=== PATIENT | female | born 1975 | race Caucasian/White ===

== ENCOUNTER 2022-07-21 16:00 | Outpatient (CLI) | payer OTHER ==
[2022-07-21 20:52] LABS: BASOPHILS # (AUTO) 0.1 10^3/uL (0.0-0.1); BASOPHILS % (AUTO) 0.5 %; EOSINOPHILS # (AUTO) 0.2 10^3/uL (0.0-0.7); EOSINOPHILS % (AUTO) 1.8 %; HCT - HEMATOCRIT 34.1 % (37.0-47.0); HGB - HEMOGLOBIN 10.7 g/dL (12.0-16.0); LYMPHOCYTES # (AUTO) 2.5 10^3/uL (1.5-3.5); LYMPHOCYTES % (AUTO) 23.3 %; MEAN CORPUSCULAR HEMOGLOBIN 25.6 pg (27.0-31.0); MEAN CORPUSCULAR HGB CONC 31.4 g/dL (32.0-36.0); MEAN CORPUSCULAR VOLUME 81.6 fL (81.0-99.0); MEAN PLATELET VOLUME 8.7 fL (7.9-10.8); MONOCYTES # (AUTO) 0.7 10^3/uL (0.0-1.0); MONOCYTES % (AUTO) 6.8 %; NEUTROPHILS # (AUTO) 7.3 10^3/uL (1.5-6.6); NEUTROPHILS % (AUTO) 67.2 %; PLT - PLATELET COUNT 499 10^3/uL (130-450); RED BLOOD COUNT 4.18 10^6/uL (4.20-5.40); RED CELL DISTRIBUTION WIDTH 17.3 % (12.0-15.0); WHITE BLOOD COUNT 10.9 x10^3/uL (4.8-10.8)
[2022-07-21 21:05] LABS: CALCIUM 9.2 mg/dL (8.5-10.3); CREATININE 0.6 mg/dL (0.4-1.0); POTASSIUM 3.9 mmol/L (3.5-5.0)
== END 2022-07-21 16:15 | disposition home or self-care (01) ==
LOC: LAB.N 16:00
PROVIDERS: ATTEND Nurse Practitioner
DX: N92.0 Excessive and frequent menstruation with regular cycle (principal)
CPT/HCPCS: 36415; 80048; 85025

== ENCOUNTER 2022-09-24 13:58 | Outpatient (CLI) | payer OTHER ==
--- NOTE | 2022-10-06 10:13 | Mammography Report ---
BILATERAL DIGITAL SCREENING MAMMOGRAM 3D/2D: 09/24/2022 CLINICAL: Routine screening. No prior exams were available for comparison. Both breasts are heterogeneously dense, which may obscure small masses (category c / 51-75% glandular tissue). There is a focal asymmetry in the right breast at 9 o'clock middle depth. No other significant masses, calcifications, or other findings are seen in either breast. IMPRESSION: INCOMPLETE: NEEDS ADDITIONAL IMAGING EVALUATION The focal asymmetry in the right breast is indeterminate. Additional views with possible ultrasound are recommended. Based on the Tyrer Cuzick model (a risk assessment model) the patients lifetime risk is 11.6% and he r 10 year risk is 2.4%. According to the ACR, ACS, and NCCN guidelines, an annual breast MRI exam nadia ng with mammogram is recommended if the patients lifetime risk is 20% or greater. This exam was interpreted at Station ID: [id number]. NOTE: For mammograms, a report in lay terms will be sent to the patient. Approximately 15% of breast malignancies will not be visualized mammographically. In the management of a palpable breast mass, a negative mammogram must not discourage biopsy of a clinically suspicious lesion. Electronically Signed By: Poppy olivo/darrell:10/05/2022 14:45:43 ACR BI-RADS Category 0: Incomplete 3340F PARENCHYMAL PATTERN: (D) - The breast(s) demonstrate(s) heterogeneously dense fibroglandular parenchy ma. BI-RADS CATEGORY: (0) - 0 Mammo and [place] [id number] Immediate follow-up LATERALITY: (B)
== END 2022-09-24 13:59 | disposition home or self-care (01) ==
LOC: DI 13:58
PROVIDERS: ATTEND Obstetrics & Gynecology
DX: Z12.31 Encounter for screening mammogram for malignant neoplasm of breast (principal); R92.8 Other abnormal and inconclusive findings on diagnostic imaging of breast

== ENCOUNTER 2022-10-20 10:41 | Outpatient (CLI) | payer OTHER ==
--- NOTE | 2022-10-21 10:42 | Mammography Report ---
UNILATERAL RIGHT DIGITAL DIAGNOSTIC MAMMOGRAM 3D/2D WITH SPOT COMPRESSION: 10/20/2022 CLINICAL: Patient returns today to evaluate a focal asymmetry in the right breast. Comparison is made to exams dated: 09/24/2022 mammogram - Merged with [facility], 11/15/2019 mamm ogram, and 11/15/2019 ultrasound biopsy - [facility]. The right breast is heterogeneously dense, which may obscure small masses (category c / 51-75% glandu lar tissue). There is a focal asymmetry in the right breast at 9 o'clock middle depth. No other significant masses or calcifications are seen in the breast. IMPRESSION: INCOMPLETE: NEEDS ADDITIONAL IMAGING EVALUATION The focal asymmetry in the right breast is indeterminate. A targeted ultrasound is recommended and will immediately follow. Based on the Tyrer Cuzick model (a risk assessment model) the patients lifetime risk is 11.6% and he r 10 year risk is 2.4%. According to the ACR, ACS, and NCCN guidelines, an annual breast MRI exam nadia ng with mammogram is recommended if the patients lifetime risk is 20% or greater. This exam was interpreted at Station ID: [id number]. NOTE: For mammograms, a report in lay terms will be sent to the patient. Approximately 15% of breast malignancies will not be visualized mammographically. In the management of a palpable breast mass, a negative mammogram must not discourage biopsy of a clinically suspicious lesion. Electronically Signed By: Brice Ward M.D. slc/:10/20/2022 11:20:05 ACR BI-RADS Category 0: Incomplete 3340F PARENCHYMAL PATTERN: (D) - The breast(s) demonstrate(s) heterogeneously dense fibroglandular [place]. BI-RADS CATEGORY: (0) - 0 Ultrasound [id number] Immediate follow-up LATERALITY: (B)
--- NOTE | 2022-10-21 10:42 | Ultrasound Report ---
LIMITED ULTRASOUND OF RIGHT BREAST: 10/20/2022 CLINICAL: Patient returns today to evaluate a focal asymmetry in the right breast. Comparison is made to exams dated: 09/24/2022 mammogram - [facility], 11/15/2019 mamm ogram, 11/15/2019 ultrasound biopsy, 10/26/2019 ultrasound - [facility], and 10/20/2022 mammogram - [facility]. Color flow ultrasound of the right breast 9 o'clock region was performed. Jorgensen scale images of the r eal-time examination were reviewed. There is a 1.1 cm x 0.7 cm x 0.2 cm oval mass in the right breast at 9 o'clock middle depth 8 cm from the nipple. This oval mass is hypoechoic with a well-defined boundary and no posterior acoustic sha dowing or enhancement. This correlates with mammography findings. Color flow imaging demonstrates t hat there is no vascularity present. IMPRESSION: PROBABLY BENIGN The 1.1 cm oval mass in the right breast resembles a complicated cyst or a lymph node and is probably benign. A follow-up mammogram and an ultrasound in 6 months is recommended to demonstrate stability. Exam findings were conveyed to the patient. This exam was interpreted at Station ID: [id number]. Electronically Signed By: Brice Ward M.D. slc/:10/20/2022 11:47:17 Ultrasound BI-RADS: 3 Probably benign BI-RADS CATEGORY: (3) - 3 Mammo and [place] [id number] 6 month follow-up LATERALITY: (B)
== END 2022-10-20 10:42 | disposition home or self-care (01) ==
LOC: DI 10:41
PROVIDERS: ATTEND Obstetrics & Gynecology
DX: N63.15 Unspecified lump in the right breast, overlapping quadrants (principal)

== ENCOUNTER 2022-10-27 06:12 | Day surgery (SDC) | payer OTHER ==
[2022-10-27] MEDS ORDERED: LACTATED RINGERS 1,000 ML IV ONE ×2 (06:17→08:09)
[2022-10-27 06:36] LABS: HCG UR QUAL NEGATIVE
[2022-10-27] MEDS ORDERED: NALOXONE 0.4 MG/ML VIAL IVP PRN (07:08)
[2022-10-27] MEDS ORDERED: ATROPINE ABBOJECT 1 MG/10 ML SYRINGE IVP PRN (07:08)
[2022-10-27] MEDS ORDERED: HYDROmorphone 0.5 MG/0.5 ML SYRINGE IVP PRN (07:08)
[2022-10-27] MEDS ORDERED: ePHEDrine 50 MG/ML VIAL IVP PRN (07:08)
[2022-10-27] MEDS ORDERED: fentaNYL 100 MCG/2 ML VIAL IVP PRN (07:08)
[2022-10-27] MEDS ORDERED: SILVER NITRATE APPLICATOR TOP ONE (07:08)
[2022-10-27] MEDS ORDERED: ONDANSETRON 4 MG/2 ML VIAL IVP PRN (07:08)
--- NOTE | 2022-10-27 07:08 | ANESTHESIA ---
Pre-Anesthesia VS, & Labs - Diagnosis submucosal dibroid, heavy menstrual bleeding - Procedure hysteroscopy w d&c, myomectomy Vital Signs: Temp Pulse Resp BP Pulse Ox O2 Flow Rate 36.4 C L 73 16 129/74 100 10/27/22 06:24 10/27/22 06:24 10/27/22 06:24 10/27/22 06:24 10/27/22 06:24 Height: 5 ft 7 in Weight (kg): 94 kg Body Mass Index: 32.4 BMI Classification: Obese - NPO >8 hours - Is Patient ?: No - Lab Results Lab results reviewed: Yes Home Medications and Allergies Home Medications: Ambulatory Orders No Known Home Medications 10/21/22 No Known Home Medications 10/21/22 Allergies/Adverse Reactions: Allergies Allergy/AdvReac Type Severity Reaction Status Date / Time No Known Drug Allergies Allergy Verified 10/21/22 11:27 Anes History & Medical History - Anesthetic History Anesthesia Complications: reports: No previous complications Family history of Anesthesia Complications: Denies Family history of Malignant Hyperthermia: Denies - Medical History Cardiovascular: reports: None Pulmonary: reports: None Gastrointestinal: reports: None Urinary: reports: None Neuro: reports: None Musculoskeletal: reports: None Endocrine/Autoimmune: reports: None Blood Disorders: reports: None Skin: reports: None, Eczema Smoking Status: Never smoker - Surgical History Eyes Ears Nose Throat (EENT): reports: Myringotomy (tubes) Exam General: Alert, Oriented x3, Cooperative Dental: WNL Mouth Openin Fingerbreadth Neck Mobility: Normal Mallampati classification: II Thyromental Distance: 4-6 cm Respiratory: Lungs clear Cardiovascular: Regular rate Plan Anesthesia Type: General, MAC Consent for Procedure(s) Verified and Reviewed: Yes Code Status: Attempt Resuscitation ASA classification: 1-Healthy patient Is this case an emergency?: No
[2022-10-27] MEDS ORDERED: fentaNYL 100 MCG/2 ML VIAL ONE (07:26)
[2022-10-27] MEDS ORDERED: MIDAZOLAM 2 MG/2 ML VIAL ONE (07:26)
[2022-10-27] MEDS ORDERED: BUPIVACAINE 0.25% PF 30 ML VIAL ONE (07:33)
[2022-10-27] MEDS ORDERED: BUPIVACAINE 0.5%-EPI 1:200000 PF 30 ML VIAL ONE (07:33)
[2022-10-27] MEDS ORDERED: LIDOCAINE 1%-EPI 1:100000 20 ML MDV ONE (07:33)
[2022-10-27] MEDS ORDERED: LACTATED RINGERS 1,000 ML IV SCH (08:00)
[2022-10-27] MEDS ORDERED: ACETAMINOPHEN 500 MG TABLET PO PRN (08:28)
--- NOTE | 2022-10-27 08:32 | OPERATIVE REPORT ---
Operative Report - General Procedure Date: 10/27/22 Planned Procedure: Dilation, curettage, hysteroscopy, myomectomy Pre-Op Diagnosis: Menorrhagia, submucosal leiomyoma Procedure Performed: Dilation, curettage, hysteroscopy, myomectomy Post Op Diagnosis: Menorrhagia, submucosal leiomyoma - Procedure Note Primary Surgeon: Myra Cottrell DO Anesthesia Provider: Neno Callahan CRNA Pathology: Leiomyoma, endometrial curettings Estimated Blood Loss (mL): 20 Indications: Menorrhagia, submucosal leiomyoma Findings: Anterior leiomyoma vs polyp tissue [place] visualized Sounded 10cm Complications: None - Other Other Information/Narrative: Patient transferred to OR and adequate anesthesia obtained. Placed in dorsal lithotomy position. Prepped and draped in sterile fashion. Bladder emptied. Speculum placed. Anterior lip of cervix grasped with single tooth tenaculum. Sounded 10cm. Dilated to accomodate Myosure hysteroscope. Afrementioned findings noted. Myosure lite device used to resect fibroid/polyp tissue and EMC. Hysteroscope removed. Endometrial curettings obtained. Tenaculum removed. Hemostasis. NS fluid deficit 300cc. Tolerated procedures well. Counts correct x2. Transferred to PACU in stable condition.
[2022-10-27 08:33] VITALS: O2SAT 98
[2022-10-27 09:07] VITALS: BP 112/56
--- NOTE | 2022-10-27 11:49 | ANESTHESIA POST OP EVALUATION ---
Anesthesia Post Eval - Post Anesthesia Eval Vitals: Last Vital Signs Temp 36.5 C 10/27/22 09:04 Pulse 66 10/27/22 09:04 Resp 16 10/27/22 09:04 BP 112/56 L 10/27/22 09:04 Pulse Ox 98 10/27/22 09:04 O2 Flow Rate CV Function Including HR & BP: Stable Pain Control: Satisfactory Nausea & Vomiting: Negative Mental Status: Baseline Respiratory Status: Airway Patent Hydration Status: Satisfactory Anesthesia Complications: None
== END 2022-10-27 06:13 | disposition home or self-care (01) ==
LOC: SDS 06:12
PROVIDERS: ATTEND Obstetrics & Gynecology
PROC: 0UB98ZZ Excision of Uterus, Via Natural or Artificial Opening Endoscopic (ICD-10-PCS; 2022-10-27)
PROC: 0UDB8ZZ Extraction of Endometrium, Via Natural or Artificial Opening Endoscopic (ICD-10-PCS; principal; 2022-10-27 07:30)
DX: N92.0 Excessive and frequent menstruation with regular cycle (principal); D25.0 Submucous leiomyoma of uterus; N84.0 Polyp of corpus uteri; E66.9 Obesity, unspecified; Z32.02 Encounter for pregnancy test, result negative; Z68.32 Body mass index [BMI] 32.0-32.9, adult
CPT/HCPCS: 58561; 81025; J7120

== ENCOUNTER 2023-08-30 10:54 | Outpatient (CLI) | payer OTHER ==
--- NOTE | 2023-08-31 08:41 | Ultrasound Report ---
LIMITED ULTRASOUND OF RIGHT BREAST: 08/30/2023 CLINICAL: Patient returns for a 6 month follow up of the right breast. Comparison is made to exams dated: 08/30/2023 mammogram, 10/20/2022 ultrasound, 10/20/2022 mammogram, mammogram - [facility], and 11/15/2019 mammogram - [facility]. Color flow ultrasound of the right breast 9 o'clock region was performed. Jorgensen scale images of the r eal-time examination were reviewed. There is a 1 cm x 0.8 cm x 0.3 cm oval mass in the right breast at 9 o'clock middle depth 8 cm from t he nipple. This correlates with mammography findings. IMPRESSION: PROBABLY BENIGN The 1 cm x 0.8 cm x 0.3 cm oval mass in the right breast resembles a lymph node and is probably benig n. Follow-up mammogram and ultrasound in 6 months is recommended. This exam was interpreted at Station ID: [id number]. Electronically Signed By: Humberto Varela M.D. lc/:08/30/2023 11:49:01 Ultrasound BI-RADS: 3 Probably benign BI-RADS CATEGORY: (3) - 3 Mammo and [place] [id number] 6 month follow-up LATERALITY: (B)
--- NOTE | 2023-08-31 08:41 | Mammography Report ---
BILATERAL DIGITAL DIAGNOSTIC MAMMOGRAM 3D/2D: 08/30/2023 CLINICAL: Patient returns for a 6 month follow up of the right breast, due for bilateral exam. Comparison is made to exams dated: 10/20/2022 mammogram, 09/24/2022 mammogram - [facility], and 11/15/2019 mammogram - [facility]. Both breasts are heterogeneously dense, which may obscure small masses (category c / 51-75% glandular tissue). There is a stable focal asymmetry in the right breast at 9 o'clock middle depth. This is seen in add itional views. No other significant masses, calcifications, or other findings are seen in either breast. IMPRESSION: INCOMPLETE: NEEDS ADDITIONAL IMAGING EVALUATION The stable focal asymmetry in the right breast is indeterminate. An ultrasound is recommended. Based on the Tyrer Cuzick model (a risk assessment model) the patient's lifetime risk is 11.6% and he r 10 year risk is 2.4%. According to the ACR, ACS, and NCCN guidelines, an annual breast MRI exam nadia ng with mammogram is recommended if the patient's lifetime risk is 20% or greater. This exam was interpreted at Station ID: [id number]. NOTE: For mammograms, a report in lay terms will be sent to the patient. Approximately 15% of breast malignancies will not be visualized mammographically. In the management of a palpable breast mass, a negative mammogram must not discourage biopsy of a clinically suspicious lesion. Electronically Signed By: Humberto steele/penrad:08/30/2023 11:47:39 ACR BI-RADS Category 0: Incomplete 3340F PARENCHYMAL PATTERN: (D) - The breast(s) demonstrate(s) heterogeneously dense fibroglandular [place]. BI-RADS CATEGORY: (0) - 0 Ultrasound [id number] Immediate follow-up LATERALITY: (B)
== END 2023-08-30 10:55 | disposition home or self-care (01) ==
LOC: DI 10:54
PROVIDERS: ATTEND Obstetrics & Gynecology
DX: R92.8 Other abnormal and inconclusive findings on diagnostic imaging of breast (principal); R92.333 Mammographic heterogeneous density, bilateral breasts